=== PATIENT | female | born 1940 | race Caucasian/White ===

== ENCOUNTER 2022-01-30 12:50 | Emergency (ER) | payer MEDICARE ==
--- NOTE | 2022-01-30 13:24 | ED Physician Documentation ---
History of Present Illness - Stated complaint Stated Complaint: CONFUSION,RECENT FALLS - Chief complaint Chief Complaint: Neuro - History obtained from History obtained from: Patient, Family - History of Present Illness Timing: How many weeks ago (several) Pain level max: 0 Pain level now: 0 - Additonal information Additional information: Patient is a 81-year-old female who is brought in by her family today. They state that she has had cognitive decline for the past 2 years. They state that she has been falling about 6 times over the past month. They state that she has a bruise to the left side of her face. Her doctor had ordered a head CT but they have not scheduled this yet. She has had 3 falls this week so they went to the walk-in clinic today for "lab work". The walk-in clinic sent him here for further evaluation. The patient has had nasal congestion, but no fevers. Has had a mild dry cough. No abdominal pain. No nausea or vomiting. Nothing makes it better or worse. No change in her medications. She is not having any head, neck, back pain. She occasionally uses a walking stick to help her ambulate. [place] [facility]. nothing makes it better or worse. Review of Systems Ten Systems: 10 systems reviewed and negative Constitutional: denies: Fever, Chills Throat: denies: Sore throat Cardiac: denies: Chest pain / pressure, Palpitations Respiratory: denies: Dyspnea, Wheezing GI: denies: Abdominal Pain, Vomiting, Diarrhea Skin: denies: Rash Musculoskeletal: denies: Neck pain, Back pain Neurologic: denies: Generalized weakness, Focal weakness, Numbness, Seizure PD PAST MEDICAL HISTORY - Past Medical History Past Medical History: Yes Cardiovascular: High cholesterol Endocrine/Autoimmune: HyPOthyroidism Psych: Depression - Allergies Allergies/Adverse Reactions: Allergies Allergy/AdvReac Type Severity Reaction Status Date / Time No Known Drug Allergies Allergy Verified 01/30/22 13:04 - Living Situation Living Situation: reports: With family Living Arrangement: reports: At home - Social History Does the pt smoke?: No Does the pt have substance abuse?: No - Family History Family history: reports: Non contributory PD ED PE NORMAL - Vitals Vital signs reviewed: Yes - General General: Alert and oriented X 3, No acute distress, Well developed/nourished - HEENT HEENT: PERRL, Moist mucous membranes, Other (healing ecchymosis to the L cheek. otherwise atraumatic) - Neck Neck: Supple, no meningeal sign, No bony TTP - Cardiac Cardiac: RRR, Strong equal pulses - Respiratory Respiratory: No respiratory distress, Clear bilaterally - Abdomen Abdomen: Soft, Non tender, Non distended - Back Back: No spinal TTP - Derm Derm: Warm and dry - Extremities Extremities: No edema, No calf tenderness / cord - Neuro Neuro: Alert and oriented X 3, stem mounter 2-12 intact, No motor deficit, No sensory deficit, Normal speech Eye Opening: Spontaneous Motor: Obeys Commands Verbal: Oriented GCS Score: 15 - Psych Psych: Normal mood, Normal affect Results - Vitals Vitals: Vital Signs - 24 hr 01/30/22 01/30/22 12:58 14:09 Temperature 37.0 C Heart Rate 92 72 Respiratory 16 20 Rate Blood Pressure 110/59 L 115/76 O2 Saturation 99 95 Oxygen O2 Source Room air - Labs Labs: Laboratory Tests 01/30/22 01/30/22 01/30/22 13:28 13:28 13:54 WBC 10.0 RBC 4.13 L Hgb 11.5 L Hct 37.1 MCV 89.8 MCH 27.8 MCHC 31.0 L RDW 12.5 Plt Count 349 MPV 8.5 Neut # (Auto) 7.0 H Lymph # (Auto) 1.8 Merrick # (Auto) 0.8 Eos # (Auto) 0.3 Baso # (Auto) 0.0 Absolute Nucleated RBC 0.00 Nucleated RBC % 0.0 Sodium 140 Potassium 3.8 Chloride 100 L Carbon Dioxide 28 Anion Gap 12.0 BUN 14 Creatinine 0.6 Estimated GFR (MDRD) 96 Glucose 98 Calcium 9.2 Total Bilirubin 0.5 AST 15 ALT 14 Alkaline Phosphatase 80 Total Protein 7.1 Albumin 3.4 Globulin 3.7 Albumin/Globulin Ratio 0.9 L Urine Color YELLOW Urine Clarity CLEAR Urine pH 5.5 Ur Specific [place] >=1.030 H Urine Protein NEGATIVE Urine Glucose (UA) NEGATIVE Urine Ketones NEGATIVE Urine Occult Blood NEGATIVE Urine Nitrite NEGATIVE Urine Bilirubin NEGATIVE Urine Urobilinogen 0.2 (NORMAL) Ur Leukocyte Esterase NEGATIVE Ur Microscopic Review NOT INDICATED Urine Culture Comments NOT INDICATED - Rads (name of study) head CT Radiology: Final report received, EMP read contemporaneously, See rad report (No acute abnormality) Chest x-ray Radiology: Final report received, EMP read contemporaneously, See rad report (No acute abnormality) PD MEDICAL DECISION MAKING - ED course Complexity details: reviewed results, re-evaluated patient, considered differential, d/w patient, d/w family ED course: 81-year-old female with multiple falls and what sounds like worsening dementia. No acute findings on CT scan or chest x-ray. There was a question of a right sided facial fracture, but she has no tenderness on the side. No significant lab abnormalities. Mild dehydration. We will increase her fluid intake at home. We will have her follow-up with her doctor for further care and formal diagnosis. Patient and family counseled regarding signs and symptoms for which I believe and urgent re-evaluation would be necessary. Patient with good understanding of and agreement to plan and is comfortable going home at this time This document was made in part using voice recognition software. While efforts are made to proofread this document, sound alike and grammatical errors may occur. Departure - Departure Disposition: 01 Home, Self Care Clinical Impression: Falls frequently, Memory changes Condition: Good Instructions: ED Altered Loc, ED Mechanical Fall Follow-Up: Jason Ramsey MD [Primary Care Provider] - Within 1 week Comments: Please follow-up with your doctor for further care. Her head CT and chest x-ray did not show any acute abnormalities today. She has no significant lab abnormalities that would be causing her symptoms. Please return if she worsens. Discharge Date/Time: 01/30/22 15:13
[2022-01-30 13:33] LABS: BASOPHILS % (AUTO) 0.3 %; EOSINOPHILS # (AUTO) 0.3 10^3/uL (0.0-0.7); EOSINOPHILS % (AUTO) 2.7 %; HCT - HEMATOCRIT 37.1 % (37.0-47.0); HGB - HEMOGLOBIN 11.5 g/dL (12.0-16.0); LYMPHOCYTES # (AUTO) 1.8 10^3/uL (1.5-3.5); LYMPHOCYTES % (AUTO) 18.4 %; MEAN CORPUSCULAR HEMOGLOBIN 27.8 pg (27.0-31.0); MEAN CORPUSCULAR VOLUME 89.8 fL (81.0-99.0); MEAN PLATELET VOLUME 8.5 fL (7.9-10.8); MONOCYTES # (AUTO) 0.8 10^3/uL (0.0-1.0); MONOCYTES % (AUTO) 7.8 %; NEUTROPHILS % (AUTO) 70.3 %; PLT - PLATELET COUNT 349 10^3/uL (130-450); RED BLOOD COUNT 4.13 10^6/uL (4.20-5.40); RED CELL DISTRIBUTION WIDTH 12.5 % (12.0-15.0)
[2022-01-30 13:46] LABS: ALBUMIN 3.4 g/dL (3.2-5.5); ALBUMIN/GLOBULIN RATIO 0.9 (1.0-2.2); BILIRUBIN,TOTAL 0.5 mg/dL (0.2-1.0); CALCIUM 9.2 mg/dL (8.5-10.3); CREATININE 0.6 mg/dL (0.4-1.0); POTASSIUM 3.8 mmol/L (3.5-5.0); TOTAL PROTEIN 7.1 g/dL (6.7-8.2)
--- NOTE | 2022-01-30 13:48 | CT Report ---
PROCEDURE: HEAD WO INDICATIONS: fall, head injury 1 week ago, confusion TECHNIQUE: Noncontrast 4.5 mm thick angled axial sections acquired from the foramen magnum to the vertex. For r adiation dose reduction, the following was used: automated exposure control, adjustment of mA and/or kV according to patient size. COMPARISON: None. FINDINGS: Image quality: Excellent. CSF spaces: Basal cisterns are patent. No extra-axial fluid collections. Ventricles are normal in size and shape. Brain: No midline shift. No intracranial masses or hemorrhage. No area of hypodensity in a vascula r distribution to suggest acute infarction. 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 Age-related parenchymal loss. Skull and face: Possible fracture at the right maxillary sinus. This is partially visualized. This ma y be chronic. No calvarial fracture. Sinuses: Opacification of the maxillary sinuses. Mucosal thickening in the the paranasal sinuses and sphenoid sinuses. Mastoids are clear. IMPRESSION: 1. No acute intracranial abnormality. No acute intracranial hemorrhage. 2. Possible fracture at the right maxillary sinus. However, this could be chronic. If concern for acu te fracture recommend rectal facial CT. 3. Paranasal sinus disease. Reviewed by: Emir Cox MD on 01/30/2022 1:46 PM [facility] Approved by: Emir Cox MD on 01/30/2022 1:46 PM [facility] Station ID: [id number]
[2022-01-30 14:03] LABS: BILIRUBIN,URINE NEGATIVE (NEGATIVE); GLUCOSE, URINE (UA) NEGATIVE (NEGATIVE); KETONES,URINE (UA) NEGATIVE (NEGATIVE); LEUKOCYTE ESTERASE, URINE NEGATIVE (NEGATIVE); NITRITE,URINE NEGATIVE (NEGATIVE); OCCULT BLOOD,URINE NEGATIVE (NEGATIVE); PH,URINE 5.5 PH (5.0-7.5); PROTEIN,URINE NEGATIVE (NEGATIVE); UROBILINOGEN,URINE 0.2 (NORMAL) E.U./dL (NORMAL)
[2022-01-30 14:11] VITALS: BP 115/76
[2022-01-30 14:30] LABS: CLARITY,URINE CLEAR (CLEAR)
--- NOTE | 2022-01-30 14:32 | XRAY Report ---
PROCEDURE: Chest 1 View X-Ray INDICATIONS: chest pain TECHNIQUE: One view of the chest was acquired. COMPARISON: None. FINDINGS: Surgical changes and devices: None. Lungs and pleura: No pleural effusions or pneumothorax. Lungs are clear. Mediastinum: Mediastinal contours appear normal. Heart size is normal. Bones and chest wall: No suspicious bony lesions but there appears to be a healed left mid chest lat eral rib fracture. Several adjacent ribs show mild irregularity suggestive of additional prior healed fractures above and below.. Overlying soft tissues appear unremarkable. IMPRESSION: Old healed left lateral mid chest rib fractures, a definite source of new onset chest pain is not see n. Reviewed by: Shimon Gordillo MD on 01/30/2022 2:31 PM PST Approved by: Shimon Gordillo MD on 01/30/2022 2:31 PM PST Station ID: [id number]
== END 2022-01-30 15:13 | disposition home or self-care (01) ==
LOC: ED 12:50
DX: R29.6 Repeated falls (principal); R41.3 Other amnesia; E86.0 Dehydration
CPT/HCPCS: 36415; 80053; 81001; 81003; 85025; 87086; 99282; 99284

== ENCOUNTER 2023-04-26 13:10 | Outpatient (CLI) | payer MEDICARE ==
--- NOTE | 2023-04-26 15:52 | DEXA Report ---
PROCEDURE: Dexa Spine and/or Hip INDICATIONS: POST MENOPAUSAL TECHNIQUE: Dual energy x-ray absorptiometry (DXA) was performed on a Cumed System. Regions measur ed are the AP Spine, femoral neck, and if needed forearm. COMPARISON: None FINDINGS: Lumbar Spine: Bone Mineral Density: 1.534 g/cm/cm,T score: 3. Left Femoral Neck: Bone Mineral Density: 0.957 g/cm/cm, T score: -0.6. Left Hip: Bone Mineral Density: 0.920 g/cm/cm,T score: -0.7. (T score greater or equal to -1.0: NORMAL) (T score from -1.1 to -2.4: OSTEOPENIA) (T score less than or equal to -2.5 to: OSTEOPOROSIS) Impression: By WHO criteria, this patient has normal bone density. Reviewed by: Angeles Obregon MD on 04/26/2023 3:51 PM PST Approved by: Angeles Obregon MD on 04/26/2023 3:51 PM PST Station ID: [id number]
== END 2023-04-26 13:11 | disposition home or self-care (01) ==
LOC: DI 13:10
PROVIDERS: ATTEND Internal Medicine
DX: Z78.0 Asymptomatic menopausal state (principal)